=== PATIENT | female | born 1960 | race American Indian/Alaskan Native ===

== ENCOUNTER 2016-05-28 08:03 | Outpatient (CLI) | payer OTHER ==
[~2016-05-28 08:03] MED LIST: XYLOCAINE TOPICAL 4% TP ONE
[2016-05-28] MEDS ORDERED: XYLOCAINE TOPICAL 2% ONE (08:31)
[2016-05-28] MEDS ORDERED: XYLOCAINE TOPICAL 2% TP ONE (13:19)
== END 2016-05-28 08:04 | disposition home or self-care (01) ==
LOC: WOUND 08:03
PROVIDERS: ATTEND Podiatrist
DX: I87.312 Chronic venous hypertension (idiopathic) with ulcer of left lower extremity (principal); L97.922 Non-pressure chronic ulcer of unspecified part of left lower leg with fat layer exposed
CPT/HCPCS: 11042; G0463

== ENCOUNTER 2016-05-31 12:03 | Outpatient (CLI) | payer OTHER ==
[~2016-05-31 12:03] MED LIST changes: +XYLOCAINE TOPICAL 2% ONE; -XYLOCAINE TOPICAL 4% TP ONE
== END 2016-05-31 12:04 | disposition home or self-care (01) ==
LOC: WOUND 12:03
PROVIDERS: ATTEND Podiatrist
DX: I87.312 Chronic venous hypertension (idiopathic) with ulcer of left lower extremity (principal); L97.822 Non-pressure chronic ulcer of other part of left lower leg with fat layer exposed
CPT/HCPCS: 99212; G0463

== ENCOUNTER 2016-06-04 09:36 | Outpatient (CLI) | payer OTHER ==
[2016-06-04] MEDS ORDERED: XYLOCAINE TOPICAL 2% TP ONE ×2 (10:35→13:00)
== END 2016-06-04 09:37 | disposition home or self-care (01) ==
LOC: WOUND 09:36
PROVIDERS: ATTEND Podiatrist
DX: I87.312 Chronic venous hypertension (idiopathic) with ulcer of left lower extremity (principal); L97.922 Non-pressure chronic ulcer of unspecified part of left lower leg with fat layer exposed; I10 Essential (primary) hypertension; I87.2 Venous insufficiency (chronic) (peripheral)

== ENCOUNTER 2016-06-11 08:07 | Outpatient (CLI) | payer OTHER ==
[2016-06-11] MEDS ORDERED: XYLOCAINE TOPICAL 2% ONE (08:12)
[2016-06-11] MEDS ORDERED: XYLOCAINE TOPICAL 2% TP ONE (08:29)
== END 2016-06-11 08:08 | disposition home or self-care (01) ==
LOC: WOUND 08:07
PROVIDERS: ATTEND Podiatrist
DX: I87.312 Chronic venous hypertension (idiopathic) with ulcer of left lower extremity (principal); I87.2 Venous insufficiency (chronic) (peripheral); L97.922 Non-pressure chronic ulcer of unspecified part of left lower leg with fat layer exposed

== ENCOUNTER 2016-06-18 08:11 | Outpatient (CLI) | payer OTHER | END 2016-06-18 08:12 | disposition home or self-care (01) | LOC: WOUND 08:11 | PROVIDERS: ATTEND Podiatrist | DX: I87.312 Chronic venous hypertension (idiopathic) with ulcer of left lower extremity (principal); L97.822 Non-pressure chronic ulcer of other part of left lower leg with fat layer exposed; I87.2 Venous insufficiency (chronic) (peripheral) | CPT/HCPCS: 99212; G0463 ==